=== PATIENT | male | born 1970 | race Caucasian/White ===

== ENCOUNTER → 2021-03-29 | Outpatient (CLI) | payer OTHER ==
[2021-03-29 09:52] LABS: BASO % 0 % (0-3); EOS # 0.4 x10^3/uL (0.0-0.7); EOS % 1 % (0-3); HEMATOCRIT 45.6 % (39.0-53.0); HEMOGLOBIN 15.3 g/dL (13.0-17.5); LYMPH # 16.3 x10^3/uL (1.0-4.8); LYMPH % 63 % (24-48); MEAN CORPUSCULAR HEMOGLOBIN 30 pg (25-35); MEAN CORPUSCULAR HGB CONC 34 g/dL (31-37); MEAN CORPUSCULAR VOLUME 88 fL (79-100); MONO # 1.1 x10^3/uL (0.0-1.1); MONO % 4 % (0-9); NEUT % 31 % (31-73); PLATELET COUNT 189 x10^3/uL (140-400); RED BLOOD COUNT 5.16 x10^6/uL (4.30-5.70); RED CELL DISTRIBUTION WIDTH 14.1 % (11.5-14.5); WHITE BLOOD COUNT 25.8 x10^3/uL (4.0-11.0)
[2021-03-29 10:01] LABS: CALCIUM 8.3 mg/dL (8.5-10.1); CREATININE 0.9 mg/dL (0.7-1.3); GFR 89.7; POTASSIUM 4.2 mmol/L (3.5-5.1)
[2021-03-29 10:07] LABS: ALBUMIN 3.5 g/dL (3.4-5.0); ALBUMIN/GLOBULIN RATIO 0.9 (1.0-1.7); TOTAL BILIRUBIN 0.4 mg/dL (0.2-1.0); TOTAL PROTEIN 7.6 g/dL (6.4-8.2)
[2021-03-29 11:03] LABS: % ATYL 3 % (0-0); % BANDS 1 % (0-9); % EOS 2 % (0-5); % LYMPHS 68 % (24-48); % SEGS 26 % (35-66); PLT ESTIMATE ADEQUATE (ADEQUATE)
[2021-03-29 11:04] LABS: SMUDGE CELLS PRESENT
== END ==
LOC: ONCLAB 09:23
PROVIDERS: ATTEND Internal Medicine Hematology & Oncology
DX: D72.828 Other elevated white blood cell count (principal)
CPT/HCPCS: 80053; 82607; 82746; 83921; 85007; 85025

== ENCOUNTER → 2021-04-11 | Outpatient (CLI) | payer OTHER | LOC: ONCLAB 09:16 | PROVIDERS: ATTEND Internal Medicine Hematology & Oncology | DX: D72.828 Other elevated white blood cell count (principal) | CPT/HCPCS: 88184; 88185 ==

== ENCOUNTER → 2021-07-14 | Outpatient (CLI) | payer OTHER ==
[2021-07-14 10:33] LABS: BASO # 0.1 x10^3/uL (0.0-0.2); BASO % 0 % (0-3); EOS # 0.3 x10^3/uL (0.0-0.7); EOS % 1 % (0-3); HEMATOCRIT 45.5 % (39.0-53.0); HEMOGLOBIN 15.1 g/dL (13.0-17.5); LYMPH # 25.1 x10^3/uL (1.0-4.8); LYMPH % 74 % (24-48); MEAN CORPUSCULAR HEMOGLOBIN 30 pg (25-35); MEAN CORPUSCULAR HGB CONC 33 g/dL (31-37); MEAN CORPUSCULAR VOLUME 91 fL (79-100); MONO % 3 % (0-9); NEUT # 7.2 x10^3/uL (1.8-7.7); NEUT % 22 % (31-73); PLATELET COUNT 218 x10^3/uL (140-400); RED BLOOD COUNT 5.03 x10^6/uL (4.30-5.70); RED CELL DISTRIBUTION WIDTH 14.3 % (11.5-14.5); WHITE BLOOD COUNT 33.7 x10^3/uL (4.0-11.0)
[2021-07-14 10:50] LABS: CALCIUM 8.9 mg/dL (8.5-10.1); GFR 79.4; POTASSIUM 4.3 mmol/L (3.5-5.1)
[2021-07-14 10:55] LABS: ALBUMIN 4.2 g/dL (3.4-5.0); ALBUMIN/GLOBULIN RATIO 1.1 (1.0-1.7); TOTAL BILIRUBIN 0.3 mg/dL (0.2-1.0); TOTAL PROTEIN 8.1 g/dL (6.4-8.2)
[2021-07-14 11:55] LABS: % EOS 1 % (0-5); % LYMPHS 83 % (24-48); % MONOS 1 % (0-10); % SEGS 15 % (35-66)
[2021-07-14 11:56] LABS: PLT ESTIMATE ADEQUATE (ADEQUATE)
== END ==
LOC: ONCLAB 10:19
PROVIDERS: ATTEND Internal Medicine Hematology & Oncology
DX: D72.828 Other elevated white blood cell count (principal)
CPT/HCPCS: 36415; 80053; 85007; 85025